=== PATIENT | male | born 1965 | race Caucasian/White ===

== ENCOUNTER 2017-01-30 08:31 | Emergency (ER) | payer BC ==
[~2017-01-30] VITALS: Ht 177.8 cm; Wt 111.2 kg
[~2017-01-30 08:31] MED LIST: LO-DOSE ASPIRIN81 M2 PO
[2017-01-30 09:04] LABS: EOSINOPHIL (%) 2.7 % (0-5); EOSINOPHIL COUNT 0.2 K/uL (0-0.3); HEMATOCRIT 45.4 % (38.0-50.0); IMMATURE GRANULOCYTE (%) 0.8 % (0.0-0.7); IMMATURE GRANULOCYTE COUNT 0.1 K/uL; INSTRUMENT ABS NEUTROPHIL CT 4.6 K/uL; LYMPHOCYTE COUNT 2.2 K/uL (1.0-2.8); MCH 29.5 PG (29.0-34.0); MCHC 33.7 G/DL (30.0-36.0); MCV 87.6 FL (86-99); MEAN PLAT.VOLUME 10.8 uM^3 (9.0-12.4); MONOCYTE (%) 10.1 % (3-12); MONOCYTE COUNT 0.8 K/uL (0-0.8); NEUTROPHIL COUNT 4.6 K/uL (1.8-6.4); PLATELET COUNT 194 K/uL (156-360); RBC DIS.WIDTH-CV 12.9 % (11.8-14.6); RBC DIS.WIDTH-SD 41.8 % (39-53); RED BLOOD COUNT 5.18 M/uL (4.00-5.50); WHITE BLOOD COUNT 7.9 K/uL (4.1-10.2)
[2017-01-30 09:24] LABS: ADD MIUA? YES; BILIRUBIN NEGATIVE; BLOOD NEGATIVE; COLOR YELLOW ((YELLOW)); GLUCOSE (STRIP) NEGATIVE; KETONES 5; LEUKOCYTES NEGATIVE; NITRITE NEGATIVE; PROTEIN (STRIP) NEGATIVE; SPECIFIC GRAVITY 1.027 (1.000-1.030); UROBILINOGEN 0.2 MG/DL (0.2-1.0)
[2017-01-30 09:30] LABS: BACTERIA NONE SEEN /HPF; EPITHELIAL CELLS RARE /HPF; MUCUS TRACE /LPF; RED BLOOD CELLS 0-5 /HPF (0-5); WHITE BLOOD CELLS 0-5 /HPF (0-5)
[2017-01-30 09:30] LABS: CHLORIDE 104 mEq/L (99-109); POTASSIUM 3.6 mEq/L (3.7-5.4); SODIUM 138 mEq/L (136-147)
[2017-01-30 09:32] LABS: GLUCOSE 148 mg/dL (70-99)
[2017-01-30 09:33] LABS: ANION GAP 9 MEQ/L (2-14)
[2017-01-30 09:36] LABS: GFR ESTIMATE (CALCULATED) > 59 mL/min/
[2017-01-30 09:37] LABS: UREA NITROGEN (BUN) 29 mg/dL (9-23)
[2017-01-30] MEDS ORDERED: PERCOCET 5/31 TABLET PO (10:21)
[2017-01-30 10:36] VITALS: BP 127/82
== END 2017-01-30 10:37 | disposition home or self-care (01) ==
LOC: EME 08:31
PROVIDERS: Emergency Medicine
DX: N20.0 Calculus of kidney (principal)
CPT/HCPCS: 74176; 80048; 81003; 85025; 99281; 99284; J2270; J2405; J7030